=== PATIENT | female | born 2000 | race Caucasian/White ===

== ENCOUNTER 2021-11-10 12:00 | Emergency (ER) | payer MEDICAID ==
[~2021-11-10] VITALS: Ht 170.2 cm; Wt 61.2 kg
[2021-11-10] MEDS ORDERED: AZIT250T13 PO (12:26)
--- NOTE | 2021-11-10 12:54 | NUR ---
PT EVALUATED AND EXAMINED BY DR HILTON.
--- NOTE | 2021-11-10 12:55 | NUR ---
RAPID STREP SWAB DONE ASPER MD ORDERS.
[2021-11-10 12:56] VITALS: BP 103/57
== END 2021-11-10 12:57 | disposition home or self-care (01) ==
LOC: ER 12:00
DX: J03.90 Acute tonsillitis, unspecified (principal)
CPT/HCPCS: 86403; A4663

== ENCOUNTER 2021-11-15 15:45 | Emergency (ER) | payer MEDICAID ==
[~2021-11-15] VITALS: Ht 170.2 cm; Wt 61.2 kg
[~2021-11-15 15:45] MED LIST: AZIT250T13 PO
--- NOTE | 2021-11-15 16:02 | NUR ---
Dr Kelly at the bedside for MSE.
[2021-11-15] MEDS ORDERED: PENI500T PO (16:11)
[2021-11-15] MEDS ORDERED: DEXAMETHASONE 4 MG TABLET ONE (16:12)
[2021-11-15] MEDS ORDERED: DEXAMETHASONE 4 MG TABLET PO ONE (16:15)
[2021-11-15] MEDS ORDERED: FLUC200T PO (16:19)
--- NOTE | 2021-11-15 16:19 | NUR ---
Patient discharged to home in stable condition. Written and verbal after care instructions given. Patient verbalizes understanding of instructions. Stressed follow up or return to ER for worsening s/s.
[2021-11-15 16:26] VITALS: BP 112/61
== END 2021-11-15 16:26 | disposition home or self-care (01) ==
LOC: ER 16:05
DX: J02.0 Streptococcal pharyngitis (principal)
CPT/HCPCS: 99283; J8540; A4663

== ENCOUNTER 2022-02-22 23:41 | Emergency (ER) | payer MEDICAID ==
[~2022-02-22] VITALS: Ht 170.2 cm; Wt 59.0 kg
[~2022-02-22 23:41] MED LIST changes: +FLUC200T PO; +PENI500T PO
[2022-02-23] MEDS ORDERED: IBUPROFEN 800 MG TABLET PO ONE (00:45)
[2022-02-23] MEDS ORDERED: IBUP-1955 PO (00:54)
[2022-02-23 01:06] LABS: *URINE HCG, QUAL NEGATIVE (NEGATIVE)
--- NOTE | 2022-02-23 01:08 | NUR ---
Patient refused to wait for HCG result and to take motrin stating "I am just going to take motrin at home."
== END 2022-02-23 01:10 | disposition home or self-care (01) ==
LOC: ER 23:45
DX: G56.01 Carpal tunnel syndrome, right upper limb (principal)
CPT/HCPCS: 84703; A4663

== ENCOUNTER 2022-08-23 19:34 | Emergency (ER) | payer MEDICAID, OTHER ==
[~2022-08-23] VITALS: Ht 170.2 cm; Wt 68.0 kg
[~2022-08-23 19:34] MED LIST changes: +IBUP-1955 PO
[2022-08-23 20:07] LABS: *URINE HCG, QUAL NEG (NEGATIVE)
--- NOTE | 2022-08-23 20:14 | NUR ---
ACI GIVEN, REMAINS STABLE FOR DISCHARGE.
[2022-08-23 20:15] VITALS: BP 123/74
[2022-08-26 03:07] LABS: *GC NAA Negative (Negative); *TRIC.VAG. NAA Negative (Negative)
== END 2022-08-23 20:16 | disposition home or self-care (01) ==
LOC: ER 20:02
DX: Z00.00 Encounter for general adult medical examination without abnormal findings (principal); Z79.1 Long term (current) use of non-steroidal anti-inflammatories (NSAID); Z79.2 Long term (current) use of antibiotics; Z79.899 Other long term (current) drug therapy
CPT/HCPCS: 84703; 87491; A4663